=== PATIENT | female | born 1990 | race African-American/Black ===

== ENCOUNTER 2019-12-17 10:01 | Emergency (ER) | payer OTHER ==
[~2019-12-17] VITALS: Ht 160 cm; Wt 101.2 kg
[2019-12-17 10:16] VITALS: BP 115/83
--- NOTE | 2019-12-17 10:16 | NUR ---
ED Nurse Note: Pt ambulated into the ED from home with mother CO chest pain 3/10 that has been constantx 2 days, reports feeling heaviness in chest. Pt denies n/v/radiating pain. Pt reports recent cold/ flu like symptoms 2 weeks ago. ERMD at bedside. VS in stable condition, no s/s/ of distress noted, pt aao x 4,ambulates with steady gait.
[2019-12-17] MEDS ORDERED: IBUPROFEN600 MG ORAL (10:32)
[2019-12-17 10:45] VITALS: BP 113/83
--- NOTE | 2019-12-17 10:45 | NUR ---
ER DISCHARGE NOTE: Patient is cleared to be discharged home per ERMD, pt is aox4, on room air, with stable vital signs. pt was given dc and prescription instructions, pt was able to verbalize understanding, pt id band removed. pt is able to ambulate with steady gait. pt took all belongings.
--- NOTE | 2019-12-17 13:54 | Emergency Room Report ---
History of Present Illness General Chief Complaint: Chest Pain Source: Patient Present Illness HPI 29-year-old female presents ED for evaluation. Complaining of chest pain. Started 2 days ago. Midsternal, dull, 7 out of 10, nonradiating. Denies shortness of breath. States that a few days ago she was having some cough and cold symptoms. Denies shortness of breath. Denies sick contacts or recent travel. Denies alcohol or drug use. No other aggravating relieving factors. Denies any other associated symptoms Allergies: Uncoded Allergies: SEAFOOD (Allergy, Unknown, 12/17/19) Patient History Past Medical History: none Past Surgical History: none Pertinent Family History: none Social History: Denies: smoking, alcohol use, drug use Last Menstrual Period: CURRENTLY ON HER PERIOD Now: No Immunizations: UTD Reviewed Nursing Documentation: PMH: Agreed; PSxH: Agreed Nursing Documentation-PMH Past Medical History: No Stated History Review of Systems All Other Systems: negative except mentioned in HPI Physical Exam Vital Signs Date Time Temp Pulse Resp B/P (MAP) Pulse Ox O2 Delivery O2 Flow Rate FiO2 12/17/19 10:06 98.4 69 20 126/82 (97) 96 Room Air Sp02 EP Interpretation: reviewed, normal General Appearance: no apparent distress, alert, GCS 15, non-toxic Head: normocephalic, atraumatic Eyes: bilateral eye normal inspection, bilateral eye PERRL ENT: hearing grossly normal, normal pharynx, no angioedema, normal voice Neck: full range of motion, supple/symm/no masses Respiratory: lungs clear, normal breath sounds, speaking full sentences, other - Reproducible sternal pain Cardiovascular #1: regular rate, rhythm, no edema Cardiovascular #2: 2+ carotid (R), 2+ carotid (L), 2+ radial (R), 2+ radial (L) , 2+ dorsalis pedis (R), 2+ dorsalis pedis (L) Gastrointestinal: normal bowel sounds, non tender, soft, non-distended, no guarding, no rebound Rectal: deferred Genitourinary: normal inspection, no CVA tenderness Musculoskeletal: back normal, normal range of motion, gait/station normal, non- tender Neurologic: alert, motor strength/tone normal, oriented x3, sensory intact, responsive, speech normal Psychiatric: judgement/insight normal, memory normal, mood/affect normal, no suicidal/homicidal ideation Reflexes: 3+ bicep (R), 3+ bicep (L), 3+ tricep (R), 3+ tricep (L), 3+ knee (R) , 3+ knee (L) Skin: no rash Lymphatic: no adenopathy Medical Decision Making Diagnostic Impression: Primary Impression: Chest pain Qualified Codes: R07.9 - Chest pain, unspecified ER Course Hospital Course 29-year-old female presents ED complaining of reproducible chest wall pain Differential diagnoses include: Rib fracture, GA/unstable angina, contusion, muscle strain Clinical course Patient placed on stretcher. After initial history, exam reveals female in no acute distress. There is reproducible midsternal pain. EKGnormal sinus rhythm no acute ischemic changes interpreted by me Remainder of exam unremarkable. I discussed findings with patient. Vitals stable. No cardiac risk factors. Pain is muscular. I do not believe further work-up indicated at this time. clinical findings consistent with muscle strain/costochondritis. Reassurance given. Safe for discharge for close outpatient follow-up I. I feel this is a highly complex case requiring extensive working including EKG/Rhythm strip, Xray/CT/US, Blood/urine lab work, repeat exams while in ED, and administration of strong opiates/narcotics for pain control, admission to hospital or close patient follow up. Diagnosis - chest wall pain Stable and discharged to home with prescription for Motrin. Instructed to followup with PMD. Return to ED if symptoms recur or worsen EKG Diagnostic Results Rate: normal Rhythm: NSR ST Segments: no acute changes ASA given to the pt in ED: No Rhythm Strip Diag. Results EP Interpretation: yes Rhythm: NSR, no PVC's, no ectopy Last Vital Signs Date Time Temp Pulse Resp B/P (MAP) Pulse Ox O2 Delivery O2 Flow Rate FiO2 12/17/19 10:45 98.4 16 113/83 96 Room Air 12/17/19 10:16 69 Status: improved Disposition: HOME, SELF-CARE Condition: Stable Scripts Ibuprofen* (MOTRIN*) 600 Mg Tablet 600 MG ORAL Q8H PRN for For Pain, #30 TAB 0 Refills Prov: Cedric Sullivan MD 12/17/19 Referrals: DAVID TRAVIS,REFERRING (PCP) Patient Instructions: Costochondritis, [id number] Cedric Sullivan MD Dec 17, 2019 13:54
== END 2019-12-17 10:45 | disposition home or self-care (01) ==
LOC: EMR 10:16
DX: R07.9 Chest pain, unspecified (principal); Z91.013 Allergy to seafood
CPT/HCPCS: 93005; Z7502; 99283